=== PATIENT | male | born 1985 | race Caucasian/White ===

== ENCOUNTER 2021-04-13 15:08 | Emergency (ER) | payer OTHER, SELFPAY ==
[2021-04-13 15:14] VITALS: BP 121/76; PULSE 63; RESP 18; TEMP 36.4; O2SAT 99
--- NOTE | 2021-04-13 15:40 | ED.GENADULT ---
HPI - General Adult General Chief complaint: Unspecified Stated complaint: Leg, abdominal cramps/Fatigue Time Seen by Provider: 04/13/21 15:11 Source: patient Mode of arrival: ambulatory Limitations: no limitations History of Present Illness HPI narrative: 35-year-old male presents to [facility] with complaints of intermittent leg cramping and abdominal cramping since yesterday while working. Patient reports that he worked out in the heat all day yesterday and only drank 2 small cups of water. Patient reports that the abdominal cramping has since subsided. Patient reports that he had a small amount of right leg cramping this morning but it also is improving. Patient reports that he only ate a bowl of cereal and drank 1 bottle of Gatorade in route here. Patient denies chest pain, shortness of breath, fever, body aches, chills, nausea or vomiting. Onset (ago): hour(s) (12) Exacerbating factors: none Associated symptoms: denies other symptoms Treatments prior to arrival: none Related Data Home Medications Medication Instructions Recorded Confirmed No Home Medications 04/13/21 04/13/21 Allergies Allergy/AdvReac Type Severity Reaction Status Date / Time No Known Allergies Allergy Verified 04/13/21 15:21 Review of Systems Constitutional: Constitutional: Denies chills, Denies fatigue, Denies fever(s) and Denies weakness ENT: Denies dysphagia, Denies dizziness, Denies nasal congestion and Denies sore throat Cardiovascular: Cardiovascular: Denies chest pain, Denies rapid heart rate, Denies radiating jaw, neck or arm pain and Denies slow heart rate Respiratory: Respiratory: Denies chest congestion, Denies cough, Denies dyspnea and Denies wheezing Gastrointestinal: Gastrointestinal: Denies abdominal pain, Denies constipation, Denies diarrhea, Denies nausea and Denies vomiting Musculoskeletal: Musculoskeletal: Denies back pain, Denies arthralgias, Denies joint swelling and Reports muscle cramps Integumentary/Breasts: Skin/Breast: Denies rash Neurologic: Denies headache(s), Denies focal weakness, Denies numbness and Denies weakness [facility] Social History Social History (Updated 04/13/21 @ 15:43 by Scarlett Armijo APRN) Smoking status: Current every day smoker Gender identity (if verbalized by the patient): Male Comments At time of signature, I agree with nursing past medical, surgical, social and family history. There is no relevant family history pertinent to the presenting complaint. Exam Const: General: healthy appearing, no acute distress and alert Orientation/consciousness: patient oriented x3 HENMT: Mouth: Yes Normal oral and palatal mucosa present and Yes moist mucous membranes Throat: uvula midline Resp: Effort & Inspection: normal respiratory effort, not labored and not tachypneic Auscultation: clear to auscultation bilaterally Cardio: Rate: regular rate, not bradycardic and not tachycardic Rhythm: regular rhythm and regular rhythm GI: Inspection: non-distended GI Palp: Yes Soft to palpation, No Tenderness to palpation present (GI), No Guarding due to palpation present (GI), No Rigid due to palpation and No Rebound tenderness present Skin: General skin exam: normal color Rashes: no rashes Wounds: no wounds Neuro: General: patient oriented x3, moves all extremities, no meningeal signs and no focal motor deficits Speech: normal speech Gait exam (Neuro): Normal gait present Extrem: General: normal to inspection, no clubbing, cyanosis or edema and no pedal edema Psych: Appearance: grossly normal Mental Status: mental status grossly normal Affect: normal affect Attitude: cooperative Thought content: Yes Normal thought content present Course Vital Signs Vital signs: Vital Signs Temperature 36.4 C L 04/13/21 15:14 Pulse Rate 63 04/13/21 15:14 Respiratory Rate 18 04/13/21 15:14 Blood Pressure 121/76 04/13/21 15:14 Pulse Oximetry 99 04/13/21 15:14 Temperature 36.4 C L 0
== END 2021-04-13 15:50 | disposition home or self-care (01) ==
PROVIDERS: Emergency Provider Nurse Practitioner Family
DX: R25.2 Cramp and spasm (principal)
CPT/HCPCS: 81003; 99212; G0463

== ENCOUNTER 2021-05-18 15:01 | Emergency (ER) | payer OTHER, SELFPAY ==
--- NOTE | ~2021-05-18 | XR_ITS ---
XR knee LT min 4V DATE: 05/18/2021 15:26 INDICATION: Twisted knee yesterday. Lateral pain. TECHNIQUE: 4 views COMPARISON: None FINDINGS: No fracture or dislocation, periosteal reaction or bone destruction or significant joint ef fusion. IMPRESSION: Negative Reviewed, dictated and finalized at location A. IMPRESSION: Negative
[2021-05-18 15:12] VITALS: BP 126/74; PULSE 76; RESP 18; TEMP 37; O2SAT 100
[2021-05-18 15:21] VITALS: BP 126/74; PULSE 76; RESP 18; TEMP 37; O2SAT 100
--- NOTE | 2021-05-18 15:44 | ED.LOWEXIN ---
HPI - Extremity Injury (Lower) General Chief Complaint: Extremity Injury, Lower Stated Complaint: Possible injury to left Knee Time Seen by Provider: 05/18/21 15:30 Source: patient and RN notes reviewed Mode of arrival: ambulatory Limitations: no limitations History of Present Illness HPI Narrative: Patient presents today complaining of a left knee injury. States he was struck in the medial left knee by a log that was rolling yesterday. Reports he feels some grinding in the knee with movement. He also feels some intermittent sharp pain with movement and weightbearing. Currently rates his pain 11/08. He applied ice last night and has tried no medication for symptoms prior to arrival. Denies numbness or tingling in the leg or foot. MD complaint: knee injury Related Data Home Medications Medication Instructions Recorded Confirmed No Home Medications 04/13/21 05/18/21 Allergies Allergy/AdvReac Type Severity Reaction Status Date / Time No Known Allergies Allergy Verified 05/18/21 15:11 Review of Systems Review of Systems: Narrative: CONSTITUTIONAL: Denies body aches, fever, chills, or sweats. EYES: Denies visual changes, redness, or discharge. ENT: Denies rhinorrhea, congestion, sore throat, or otalgia. CARDIOVASCULAR: Denies chest pain, palpitations, or edema. RESPIRATORY: Denies cough or dyspnea. GASTROINTESTINAL: Denies abdominal pain, nausea, vomiting, or diarrhea. GENITOURINARY: Denies dysuria or hematuria. SKIN: Denies rash, itching, or wounds. MUSCULOSKELETAL: Denies back pain, or myalgia.+ Left knee pain NEUROLOGIC: Denies headache, numbness, tingling, or weakness. PSYCH: Denies depression or anxiety. PMFSH Social History Social History (Updated 04/13/21 @ 15:43 by Scarlett Armijo, PATRICIA) Smoking status: Current every day smoker Gender identity (if verbalized by the patient): Male Comments At time of signature, I have reviewed and agree with nursing past medical, surgical, social and family history unless otherwise noted. Please see nursing chart for further information. There is no relevant family history pertinent to the presenting complaint Exam Narrative: Exam Narrative: GENERAL: Well-appearing, well-nourished, and in no acute distress. HEAD: Normocephalic, atraumatic. EYES: EOMI. No redness or drainage. Conjunctivae normal. ENT: Mucous membranes pink and moist. NECK: Normal AROM. CHEST: No respiratory distress. EXTREMITIES: Left knee: Mild tenderness to the lateral joint line. No bony tenderness to the patella. No abnormal movement of the patella. No tenderness to the patellar tendon. No tenderness to the medial joint line. No joint effusion or edema noted. No ecchymosis or erythema noted. Distal sensation intact. Capillary refill normal. Pedal pulse normal. Full AROM of the knee without increased pain. No crepitus noted. SKIN: Warm, dry, no rash. Capillary refill normal. Normal skin turgor. NEURO: No focal deficits. Alert and oriented x3. Gait steady. PSYCH: Normal affect. No signs of depression or anxiety. Course Vital Signs Vital signs: Vital Signs Temperature 98.6 F 05/18/21 15:12 Pulse Rate 76 05/18/21 15:12 Respiratory Rate 18 05/18/21 15:12 Blood Pressure 126/74 05/18/21 15:12 Pulse Oximetry 100 05/18/21 15:12 Temperature 98.6 F 05/18/21 15:21 Pulse Rate 76 05/18/21 15:21 Respiratory Rate 18 05/18/21 15:21 Blood Pressure 126/74 05/18/21 15:21 Pulse Oximetry 100 05/18/21 15:21 Reviewed. Pt has been instructed to follow up with his PCP regarding his elevated blood pressure today. MDM - Extremity Injury (Lower) Differential Diagnosis Differential diagnosis: Likely other (Knee strain, ligament injury, meniscus injury, fracture, contusion) Imaging Data Radiologist's impression: ITS Impressions Knee X-Ray 05/18/21 15:28 IMPRESSION: Negative Critical Care Time Critical Care Time Critical Care Time: No
== END 2021-05-18 16:10 | disposition home or self-care (01) ==
PROVIDERS: Emergency Provider Nurse Practitioner
DX: S89.92XA Unspecified injury of left lower leg, initial encounter (principal); W20.8XXA Other cause of strike by thrown, projected or falling object, initial encounter; F17.200 Nicotine dependence, unspecified, uncomplicated
CPT/HCPCS: 73564; 99213; G0463

== ENCOUNTER 2021-08-06 15:47 | Emergency (ER) | payer OTHER, SELFPAY ==
[2021-08-06 15:54] VITALS: BP 126/92; PULSE 68; RESP 18; TEMP 36.7; O2SAT 100
--- NOTE | 2021-08-06 15:58 | ED.ABDPAIN ---
HPI - Abdominal Pain General Chief Complaint: Neck Pain/Injury Stated Complaint: Shoulder/ Neck Pain/ Stomach Pain Time Seen by Provider: 08/06/21 15:58 Source: patient and RN notes reviewed History of Present Illness HPI narrative: Patient is a 36-year-old male who presents the urgent care with complaints of neck pain, shoulder pain and upset stomach. Patient states his main concern is his neck and shoulder pain . 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 Patient states he woke up approximately 3 days ago. Patient states that his stomach just feels empty and denies of any pain, nausea, vomiting, fever, diarrhea. Patient has not taken anything [id number] for his symptoms. Denies of any known trauma or injury to the neck or shoulder. No other acute complaints. No acute distress noted. Patient aware of the plan of care. Some parts of this dictation were generated by voice recognition software and may contain typographical and/or grammatical inaccuracies. Related Data Home Medications Medication Instructions Recorded Confirmed No Home Medications 04/13/21 05/18/21 Allergies Allergy/AdvReac Type Severity Reaction Status Date / Time No Known Allergies Allergy Verified 05/18/21 15:11 Review of Systems Review of Systems: CONSTITUTIONAL: Denies fever, chills, or sweats. EYES: Denies visual changes, redness, or discharge. ENT: Denies rhinorrhea, congestion, sore throat, or otalgia. CARDIOVASCULAR: Denies chest pain, palpitations, or edema. RESPIRATORY: Denies cough or dyspnea. GASTROINTESTINAL: Denies abdominal pain, nausea, vomiting, or diarrhea. Reports of upset stomach GENITOURINARY: Denies dysuria or hematuria. SKIN: Denies rash or itching. MUSCULOSKELETAL: Reports of left shoulder pain and left neck pain NEUROLOGIC: Denies headache, numbness, or weakness. All other systems reviewed are negative, except as documented in HPI. [facility] Social History Social History (Updated 04/13/21 @ 15:43 by Scarlett Armijo APRN) Smoking status: Current every day smoker Gender identity (if verbalized by the patient): Male Comments At the time of my signature, I reviewed and agree with the nursing past medical, surgical, social, and family history. There is no relevant family history pertinent to the patient complaint. Exam Narrative: GENERAL: This is a well-nourished, well-developed patient, in no apparent distress. HEAD: normocephalic, atraumatic. EYES: PERRL. Sclera clear/white. Vision is grossly intact. EARS: External ears normal, auditory canals clear and without drainage, TMs normal without perforation. Hearing grossly intact. NOSE: External nose normal with no obvious nasal discharge, nares without redness, no rhinorrhea. THROAT: Mucous membranes moist, posterior pharynx clear. NECK: Neck supple; very mild mid cervical tenderness radiating to the left scapular region CARDIOVASCULAR: Regular rate and rhythm without murmurs, gallops, or rubs. RESPIRATORY: Clear to auscultation. Breath sounds equal bilaterally. No wheezes, rales, or rhonchi. GASTROINTESTINAL: Abdomen soft, non-tender, nondistended. Bowel sounds are active. SKIN: warm, intact with no suspicious lesions or rash, good texture and turgor. NEURO: awake, alert, and oriented to person, place and time. There were no obvious focal neurologic abnormalities. EXTREMITIES: Range of motion to left upper extremity within normal limits without any exacerbation of pain. Positive strong right radial pulse with capillary refill less than 2 seconds. Course Vital Signs Vital signs: Vital Signs Temperature 98.1 F 08/06/21 15:54 Pulse Rate 68 08/06/21 15:54 Respiratory Rate 18 08/06/21 15:54 Blood Pressure 126/92 H 08/06/21 15:54 Pulse Oximetry 100 08/06/21 15:54 Temperature 98.1 F 08/06/21 15:54 Pulse Rate 68 08/06/21 15:54 Respiratory Rate 18 08/06/21 15:54 Blood Pressure
== END 2021-08-06 16:16 | disposition home or self-care (01) ==
PROVIDERS: Emergency Provider Nurse Practitioner Family
DX: M54.12 Radiculopathy, cervical region (principal); F17.210 Nicotine dependence, cigarettes, uncomplicated
CPT/HCPCS: 99213; G0463

== ENCOUNTER 2021-10-06 12:18 | Emergency (ER) | payer OTHER, SELFPAY ==
--- NOTE | ~2021-10-06 | XR_ITS ---
EXAMINATION: XR finger 3rd RT min 2V INDICATION: Right third finger pain TECHNIQUE: Four views of the right third finger are obtained. COMPARISON: None available FINDINGS: There is soft tissue swelling of the third finger. No fracture, dislocation, or subluxation is identified. The joint spaces are normal. IMPRESSION: 1. Soft tissue swelling of the third finger without acute osseous abnormality identified. Reviewed, dictated and finalized at location A. COPYIST IMPRESSION: 1. Soft tissue swelling of the third finger without acute osseous abnormality i dentified.
--- NOTE | 2021-10-06 12:23 | ED.UPPEXIN ---
HPI - Extremity Injury (Upper) General Chief Complaint: Extremity Injury, Upper Stated Complaint: Finger Injury/Right Hand Time Seen by Provider: 10/06/21 12:23 Source: patient and RN notes reviewed History of Present Illness HPI narrative: Patient is a 36-year-old male who presents the urgent care with complaints of a right hand middle finger injury after he got hit with a log while chopping wood yesterday. Patient took Aleve [id number] for pain. Denies of any other injuries. No other acute complaints. No acute distress noted. Patient aware of the plan of care. Some parts of this dictation were generated by voice recognition software and may contain typographical and/or grammatical inaccuracies. Related Data Home Medications Medication Instructions Recorded Confirmed No Home Medications 04/13/21 05/18/21 Allergies Allergy/AdvReac Type Severity Reaction Status Date / Time No Known Allergies Allergy Verified 10/06/21 12:39 Review of Systems Review of Systems: CONSTITUTIONAL: Denies fever, chills, or sweats. EYES: Denies visual changes, redness, or discharge. ENT: Denies rhinorrhea, congestion, sore throat, or otalgia. CARDIOVASCULAR: Denies chest pain, palpitations, or edema. RESPIRATORY: Denies cough or dyspnea. GASTROINTESTINAL: Denies abdominal pain, nausea, vomiting, or diarrhea. GENITOURINARY: Denies dysuria or hematuria. SKIN: Denies rash or itching. MUSCULOSKELETAL: Reports of right hand middle finger injury NEUROLOGIC: Denies headache, numbness, or weakness. All other systems reviewed are negative, except as documented in HPI. PMFSH Social History Social History (Updated 04/13/21 @ 15:43 by Scarlett Armijo APRN) Smoking status: Current every day smoker Gender identity (if verbalized by the patient): Male Comments At the time of my signature, I reviewed and agree with the nursing past medical, surgical, social, and family history. There is no relevant family history pertinent to the patient complaint. Exam Narrative: GENERAL: This is a well-nourished, well-developed patient, in no apparent distress. HEAD: normocephalic, atraumatic. EYES: PERRL. Sclera clear/white. Vision is grossly intact. EARS: External ears normal NOSE: External nose normal with no obvious nasal discharge, nares without redness, no rhinorrhea. THROAT: Mucous membranes moist NECK: Neck supple CARDIOVASCULAR: Regular rate and rhythm without murmurs, gallops, or rubs. RESPIRATORY: Clear to auscultation. Breath sounds equal bilaterally. No wheezes, rales, or rhonchi. SKIN: warm, intact with no suspicious lesions or rash, good texture and turgor. NEURO: awake, alert, and oriented to person, place and time. There were no obvious focal neurologic abnormalities. EXTREMITIES: Mild to moderate edema noted to the PIP to the MCP of the right middle digit. Positive strong right radial pulse with capillary refill less than 2 seconds. Range of motion of affected finger not tested due to pain. Very mild surrounding erythema Course Vital Signs Vital signs: Vital Signs Temperature 97.9 F 10/06/21 12:28 Pulse Rate 83 10/06/21 12:28 Respiratory Rate 16 10/06/21 12:28 Blood Pressure 128/80 10/06/21 12:28 Pulse Oximetry 100 10/06/21 12:28 Temperature 97.9 F 10/06/21 12:28 Pulse Rate 83 10/06/21 12:28 Respiratory Rate 16 10/06/21 12:28 Blood Pressure 128/80 10/06/21 12:28 Pulse Oximetry 100 10/06/21 12:28 Reviewed MDM - Extremity Injury (Upper) MDM Narrative Medical decision making narrative: Reviewed x-ray results with patient. He is aware that there is no notable deformity, dislocation or fracture noted to the affected finger. Advised the patient to use ice/Tylenol/ibuprofen as needed for pain or discomfort. Wear the metal foam splint as directed. Typically the swelling and pain will last approximately 3 to 5 days from the injury. Resume normal activity as tolerated. Follow-up with your PCP
[2021-10-06 12:28] VITALS: BP 128/80; PULSE 83; RESP 16; TEMP 36.6; O2SAT 100
== END 2021-10-06 12:40 | disposition home or self-care (01) ==
PROVIDERS: Emergency Provider Nurse Practitioner Family
DX: S60.031A Contusion of right middle finger without damage to nail, initial encounter (principal); W22.8XXA Striking against or struck by other objects, initial encounter; F17.200 Nicotine dependence, unspecified, uncomplicated
CPT/HCPCS: 29130; 73140; 99213; G0463

== ENCOUNTER 2022-01-27 17:00 | Emergency (ER) | payer OTHER, SELFPAY ==
--- NOTE | ~2022-01-27 | XR_ITS ---
EXAMINATION: XR knee RT min 4V DATE: 01/27/2022 18:00 INDICATION: Right knee pain. TECHNIQUE: 5 views of right knee were obtained. COMPARISON: None. FINDINGS: Bone alignment is normal. No fracture. There is mild osteoarthritis of lateral and patellof emoral compartments characterized by tiny osteophytes. No joint space narrowing. No knee joint effusi on. IMPRESSION: 1. Mild right knee osteoarthritis. Reviewed, dictated and finalized at location A.
[2022-01-27 17:20] VITALS: BP 140/81; PULSE 69; RESP 18; TEMP 37.1; O2SAT 98
--- NOTE | 2022-01-27 17:24 | ED.LOWEXIN ---
HPI - Extremity Injury (Lower) General Chief Complaint: Extremity Problem,Nontraumatic Stated Complaint: Right Knee Pain Time Seen by Provider: 01/27/22 17:24 Source: patient Mode of arrival: ambulatory Limitations: no limitations History of Present Illness HPI Narrative: 36-year-old male presented for complaint of right knee pain for 2 weeks. Denies injury. 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 He states it feels like a rock is between the skin and the patella only when he kneels down and applies pressure on the knee. He has no pain at any other time. He states he has been taking off his gloves and using them as a cushion when he kneels down, but today that did not help the pain. He does not take anything for pain. Denies numbness, tingling, weakness to the RLE. Related Data Home Medications Medication Instructions Recorded Confirmed No Home Medications 04/13/21 01/27/22 Allergies Allergy/AdvReac Type Severity Reaction Status Date / Time No Known Allergies Allergy Verified 01/27/22 17:19 Review of Systems Review of Systems: CONSTITUTIONAL: Denies body aches, fever, chills EYES: Denies visual changes ENT: Denies rhinorrhea, congestion CARDIOVASCULAR: Denies chest pain, palpitations, or edema. RESPIRATORY: Denies cough or dyspnea. GASTROINTESTINAL: Denies abdominal pain, nausea, vomiting, or diarrhea. SKIN: Denies rash, itching, or wounds. MUSCULOSKELETAL: Reports right knee pain NEUROLOGIC: Denies headache, numbness, tingling, or weakness. PSYCH: Denies depression or anxiety. All systems reviewed & are unremarkable except as noted in HPI and below PMFSH Social History Social History Smoking status: Current every day smoker Gender identity (if verbalized by the patient): Male Comments At time of signature, I have reviewed and agree with nursing past medical, surgical, social and family history unless otherwise noted. Please see nursing chart for further information. There is no relevant family history pertinent to the presenting complaint Exam Narrative: GENERAL: Well-appearing, well-nourished, and in no acute distress. HEAD: Normocephalic, atraumatic. EYES: PERRLA, conjunctivae clear NECK: Supple. CHEST: Speaks in full sentences. No respiratory distress. HEART: Regular rate and rhythm. Normal and equal peripheral pulses. EXTREMITIES: Right anterior knee pain with palpation at distal patella with knee extension, no swelling, bruising or redness, no open areas. Full active range of motion with flexion/extension/rotation. No skin tenting or obvious deformity; pulse palpable and equal bilaterally, skin warm, dry, pink. ambulatory with steady gait. SKIN: Warm, dry, no rash. NEURO: Alert and oriented x3. PSYCH: Normal mood and affect Course Course Emergency Course: Patient is aware of diagnosis, understands and agrees to treatment plan. Anticipatory guidance given. Patient agrees to follow-up as directed and is aware of reasons to seek care at the emergency department. Portions of this record may have been created with voice recognition software Level of Care: Express Care Visit Vital Signs Vital signs: Vital Signs Temperature 98.8 F 01/27/22 17:20 Pulse Rate 69 01/27/22 17:20 Respiratory Rate 18 01/27/22 17:20 Blood Pressure 140/81 01/27/22 17:20 Pulse Oximetry 98 01/27/22 17:20 Temperature 98.8 F 01/27/22 17:20 Pulse Rate 69 01/27/22 17:20 Respiratory Rate 18 01/27/22 17:20 Blood Pressure 140/81 01/27/22 17:20 Pulse Oximetry 98 01/27/22 17:20 Reviewed MDM - Extremity Injury (Lower) MDM Narrative Medical decision making narrative: Result of x-ray reviewed with patient. He is advised to use a soft knee pad and follow-up with PCP/Ortho as needed. He is appropriate for outpatient treatment. Differential Diagnosis Differential diagnosis: Likely other (knee tendon/ligament injury, patellar fracture)
== END 2022-01-27 18:24 | disposition home or self-care (01) ==
PROVIDERS: Emergency Provider Nurse Practitioner Family
DX: M25.561 Pain in right knee (principal); F17.200 Nicotine dependence, unspecified, uncomplicated
CPT/HCPCS: 73564; 99213; G0463

== ENCOUNTER 2022-09-08 16:28 | Emergency (ER) | payer OTHER, SELFPAY ==
[2022-09-08 16:32] VITALS: BP 122/74; PULSE 74; RESP 14; TEMP 36.4; O2SAT 99
--- NOTE | 2022-09-08 16:39 | ED.URI ---
HPI - URI/Sore Throat General Chief Complaint: Upper Respiratory Infection Stated Complaint: hot; sweaty; nausea Time Seen by Provider: 09/08/22 16:39 Source: patient and RN notes reviewed History of Present Illness HPI Narrative: Patient is a 37-year-old male who presents to the Urgent Care with complaints of headache confusion, nausea sore throat and congestion. Patient states he has been taking Benadryl and using cough medication to soothe the throat. Denies any known exposures. Denies any abdominal pain or vomiting. No other acute complaints. No acute distress noted. Patient aware of the plan of care. Some parts of this dictation were generated by voice recognition software and may contain typographical and/or grammatical inaccuracies. Related Data Home Medications Medication Instructions Recorded Confirmed No Home Medications 04/13/21 01/27/22 Allergies Allergy/AdvReac Type Severity Reaction Status Date / Time No Known Allergies Allergy Verified 09/08/22 16:43 Review of Systems Review of Systems: CONSTITUTIONAL: reports of fever chills EYES: Denies visual changes, redness, or discharge. ENT: Reports a sore throat, nasal congestion CARDIOVASCULAR: Denies chest pain, palpitations, or edema. RESPIRATORY: Denies cough or dyspnea. GASTROINTESTINAL: reports of intermittent nausea without vomiting, diarrhea or abdominal pain GENITOURINARY: Denies dysuria or hematuria. SKIN: Denies rash or itching. MUSCULOSKELETAL: Denies back pain, joint pain. reports of body aches NEUROLOGIC: Denies headache, numbness, or weakness. All other systems reviewed are negative, except as documented in HPI. PMFSH Social History Social History Smoking status: Current every day smoker Gender identity (if verbalized by the patient): Male Comments At the time of my signature, I reviewed and agree with the nursing past medical, surgical, social, and family history. There is no relevant family history pertinent to the patient complaint. Exam Narrative: GENERAL: This is a well-nourished, well-developed patient. appears fatigued HEAD: normocephalic, atraumatic. EYES: PERRL. Sclera clear/white. Vision is grossly intact. EARS: External ears normal, auditory canals clear and without drainage, TMs normal without perforation. Hearing grossly intact. NOSE: External nose normal with no obvious nasal discharge, nares without redness, no rhinorrhea. THROAT: Mucous membranes moist, posterior pharynx clear. moderate postnasal drainage NECK: Neck supple, non-tender without lymphadenopathy CARDIOVASCULAR: Regular rate and rhythm without murmurs, gallops, or rubs. RESPIRATORY: Clear to auscultation. Breath sounds equal bilaterally. No wheezes, rales, or rhonchi. GASTROINTESTINAL: Abdomen soft, non-tender, nondistended. SKIN: warm, intact with no suspicious lesions or rash, good texture and turgor. NEURO: awake, alert, and oriented to person, place and time. There were no obvious focal neurologic abnormalities. EXTREMITIES: No clubbing, cyanosis, or edema. Course Course Level of Care: Express Care Visit Vital Signs Vital signs: Vital Signs Temperature 97.5 F L 09/08/22 16:32 Pulse Rate 74 09/08/22 16:32 Respiratory Rate 14 09/08/22 16:32 Blood Pressure 122/74 09/08/22 16:32 Pulse Oximetry 99 09/08/22 16:32 Oxygen Delivery Room Air 09/08/22 16:32 Temperature 97.5 F L 09/08/22 16:32 Pulse Rate 74 09/08/22 16:32 Respiratory Rate 14 09/08/22 16:32 Blood Pressure 122/74 09/08/22 16:32 Pulse Oximetry 99 09/08/22 16:32 Oxygen Delivery Room Air 09/08/22 16:32 reviewed MDM - URI/Sore Throat MDM Narrative Medical decision making narrative: reviewed lab results with the patient. He is aware that he is negative for influenza. Strep swab Was also negative. Educated patient on culture and we will call within 72 hours if culture is po
== END 2022-09-08 17:11 | disposition home or self-care (01) ==
PROVIDERS: Emergency Provider Nurse Practitioner Family; PCP Physician Assistant
DX: B34.9 Viral infection, unspecified (principal); F17.200 Nicotine dependence, unspecified, uncomplicated
CPT/HCPCS: 87081; 87804; 87880; 99213; G0463

== ENCOUNTER 2022-10-08 08:44 | Emergency (ER) | payer OTHER, SELFPAY ==
[2022-10-08 08:50] VITALS: BP 113/68; PULSE 61; RESP 14; TEMP 36.8; O2SAT 99
--- NOTE | 2022-10-08 09:42 | ED.URI ---
HPI - URI/Sore Throat General Chief Complaint: Upper Respiratory Infection Stated Complaint: Sore Throat/Nausea Time Seen by Provider: 10/08/22 09:42 Source: patient, RN notes reviewed and old records reviewed Mode of arrival: ambulatory Limitations: no limitations History of Present Illness HPI Narrative: 37-year-old male presents to [facility] with complaints of illness which started p.m. Patient reports his stomach has been upset he has been nauseated, has not had vomiting or diarrhea and reports headache.. Patient states he has had sore throat for 2 days he lacks energy, no known fevers,positive for chills or sweats, he has been taking Motrin for his symptoms. He reports that his daughter has also been ill with similar symptoms. No Covid vaccinations or any flu shot. MD elicited complaint: sore throat Pain scale (0-10): 3 Treatments prior to arrival: ibuprofen Related Data Allergies Allergy/AdvReac Type Severity Reaction Status Date / Time No Known Allergies Allergy Verified 09/08/22 16:43 Review of Systems Review of Systems: CONSTITUTIONAL: Denies known fever, positive for chills, or sweats. EYES: Denies visual changes, redness, or discharge. ENT: Reports rhinorrhea, congestion, sore throat, no otalgia. CARDIOVASCULAR: Denies chest pain, palpitations, or edema. RESPIRATORY: positive cough no dyspnea. GASTROINTESTINAL: Denies abdominal pain,positive for nausea, no vomiting, or diarrhea. GENITOURINARY: Denies dysuria or hematuria. SKIN: Denies rash or itching. MUSCULOSKELETAL: Denies back pain, joint pain, or myalgia. NEUROLOGIC: Positive for headache,no numbness, or weakness. PSYCHIATRIC: Denies anxiety or depression. All systems reviewed & are unremarkable except as noted in HPI and below PMFSH Past Medical History Medical History (Updated 10/12/22 @ 12:47 by Demetra Bucnh NP) Back pain Surgical History Surgical History (Updated 10/08/22 @ 10:13 by Demetra Bunch NP) H/O hand surgery metal removed from left index finger Social History Social History (Updated 10/08/22 @ 10:11 by Demetra Bunch NP) Smoking packs per day: 0.5 Smoking cigarettes per day: 10.0 Years smoked: 10 Smoking pack-years: 5.00 Smoking status: Current every day smoker Alcohol intake: current Alcohol use details: social Substance use type: marijuana Living arrangements: with family Gender identity (if verbalized by the patient): Male Comments At time of signature, agree with nursing past medical, surgical, social and family history. There is no relevant family history pertinent to the presenting complaint Exam Narrative: GENERAL: Well-appearing, well-nourished, and in no acute distress. HEAD: Normocephalic, atraumatic. EYES: PERRLA and EOMI. ENT: Nares red with clear rhinorrhea no epistaxis. Mucous membranes moist.TM's normal with good light reflex, throat red with tonsil swelling and painful swallowing NECK: Supple.lymphadenopathy CHEST: Clear to auscultation. No respiratory distress.SAO2 99% on room air HEART: Regular rate and rhythm. No murmur heard. Normal peripheral pulses. ABDOMEN: Soft, nontender, nondistended, normal active bowel sounds. EXTREMITIES: Normal range of motion. No edema. SKIN: Warm, dry, no rash. NEURO: No focal deficits. Alert and oriented x3. Course Course Emergency Course: Patient is aware of diagnosis, understands and agrees to treatment plan.? Anticipatory guidance given.? Patient agrees to follow-up as directed and is aware of reasons to seek care at the emergency department. Portions of this record may have been created with voice recognition software Level of Care: Express Care Visit Vital Signs Vital signs: Vital Signs Temperature 36.8 C 10/08/22 08:50 Pulse Rate 61 10/08/22 08:50 Respiratory Rate 14 10/08/22 08:50 Blood Pressure 113/68 10/08/22 08:50 Pulse Oximetry 99 10/08/22 08:50 Oxygen Delivery Room Air 10/08/22 08:50 Tem
== END 2022-10-08 10:15 | disposition home or self-care (01) ==
PROVIDERS: Emergency Provider Registered Nurse; PCP Physician Assistant
DX: J02.0 Streptococcal pharyngitis (principal); Z20.822 Contact with and (suspected) exposure to COVID-19; F17.210 Nicotine dependence, cigarettes, uncomplicated; F12.90 Cannabis use, unspecified, uncomplicated
CPT/HCPCS: 87426; 87804; 87880; 99213; C9803; G0463

== ENCOUNTER 2022-10-18 12:42 | Emergency (ER) | payer OTHER, SELFPAY ==
[2022-10-18 12:55] VITALS: BP 124/69; PULSE 75; RESP 18; TEMP 36.5; O2SAT 98
--- NOTE | 2022-10-18 13:15 | ED.URI ---
HPI - URI/Sore Throat General Chief Complaint: Nausea/Vomiting/Diarrhea Stated Complaint: Vomiting/Fever/Headache Time Seen by Provider: 10/18/22 13:28 Source: patient and RN notes reviewed Mode of arrival: ambulatory Limitations: no limitations History of Present Illness HPI Narrative: 37-year-old male presents with concern for vomiting, chills body aches fever that started yesterday. Reports a fever of 102. Reports he was recently treated for strep throat, his symptoms improved, he replaced his toothbrush after 24 hours on his antibiotic. He reports his son has similar symptoms, his other children who also had strep throat recently. MD elicited complaint: cough and sore throat Related Data Allergies Allergy/AdvReac Type Severity Reaction Status Date / Time No Known Allergies Allergy Verified 10/18/22 13:00 Review of Systems Review of Systems: CONSTITUTIONAL: Reports malaise, chills, sweats, or fever. EYES: Denies visual changes, redness, or discharge. ENT: Reports rhinorrhea, congestion, and sore throat. CARDIOVASCULAR: Denies chest pain, palpitations, or edema. RESPIRATORY: Reports cough. Denies dyspnea. GASTROINTESTINAL: Denies abdominal pain, diarrhea. Reports vomiting and nausea SKIN: Denies rash or itching. MUSCULOSKELETAL: Reports myalgia. NEUROLOGIC: Denies headache. All systems reviewed & are unremarkable except as noted in HPI and below PMFSH Past Medical History Medical History (Updated 10/18/22 @ 13:34 by Cherelle Buchanan NP) Back pain Surgical History Surgical History (Updated 10/08/22 @ 10:13 by Demetra Bunch NP) H/O hand surgery metal removed from left index finger Social History Social History (Updated 10/08/22 @ 10:11 by Demetra Bunch NP) Smoking packs per day: 0.5 Smoking cigarettes per day: 10.0 Years smoked: 10 Smoking pack-years: 5.00 Smoking status: Current every day smoker Alcohol intake: current Alcohol use details: social Substance use type: marijuana Gender identity (if verbalized by the patient): Male Comments At time of signature, agree with nursing past medical, surgical, social and family history. There is no relevant family history pertinent to the presenting complaint Exam Narrative: GENERAL: Nontoxic-appearing and in no acute distress. HEAD: Normocephalic EYES: PERRLA, conjunctivae clear ENT: Nares clear, turbinates edematous and erythematous, clear discharge. Mucous membranes moist. TM pearly mcallister with dull light reflex bilaterally; no tragal tenderness. Oropharynx not erythematous without lesions. Tonsils not enlarged and without exudate, no drooling, no hoarseness, no trismus, uvula midline. NECK: Supple. No lymphadenopathy CHEST: Clear to auscultation, breath sounds equal. No wheezing, rhonchi, rales, or stridor. No respiratory distress, speaks in full sentences. HEART: Regular rate and rhythm. No murmur heard. SKIN: Warm, dry, no rash. NEURO: Alert and oriented x3. PSYCH: Normal mood and affect Course Course Emergency Course: Patient is aware of diagnosis, understands and agrees to treatment plan. Anticipatory guidance given. Patient agrees to follow-up as directed and is aware of reasons to seek care at the emergency department. Portions of this record may have been created with voice recognition software Level of Care: Express Care Visit Vital Signs Vital signs: Vital Signs Temperature 97.7 F 10/18/22 12:55 Pulse Rate 75 10/18/22 12:55 Respiratory Rate 18 10/18/22 12:55 Blood Pressure 124/69 10/18/22 12:55 Pulse Oximetry 98 10/18/22 12:55 Oxygen Delivery Room Air 10/18/22 12:55 Temperature 97.7 F 10/18/22 12:55 Pulse Rate 75 10/18/22 12:55 Respiratory Rate 18 10/18/22 12:55 Blood Pressure 124/69 10/18/22 12:55 Pulse Oximetry 98 10/18/22 12:55 Oxygen Delivery Room Air 10/18/22 12:55 Reviewed. MDM - URI/Sore Throat MDM Narrative Medical decision making narrative: Diffe
== END 2022-10-18 13:50 | disposition home or self-care (01) ==
PROVIDERS: Emergency Provider Nurse Practitioner; PCP Physician Assistant
DX: R11.2 Nausea with vomiting, unspecified (principal); R50.9 Fever, unspecified; R51.9 Headache, unspecified; F17.210 Nicotine dependence, cigarettes, uncomplicated
CPT/HCPCS: 87081; 99213; G0463

== ENCOUNTER 2023-02-15 15:20 | Emergency (ER) | payer OTHER, SELFPAY ==
[2023-02-15 15:24] VITALS: BP 136/76; PULSE 72; RESP 16; TEMP 36.9; O2SAT 98
--- NOTE | 2023-02-15 15:59 | ED.NAVMDI ---
HPI - Nausea/Vomiting/Diarrhea General Chief complaint: Nausea/Vomiting/Diarrhea Stated complaint: Diarrhea/Vomiting Source: patient and RN notes reviewed History of Present Illness HPI Narrative: 37-year-old male presents to urgent care with complaints of vomiting and diarrhea since this morning. Patient states he and his boss went to lunch yesterday they both came down with the same symptoms today. Patient states the different foods at that time. Denies any fevers, chills, abdominal pain, or dizziness. Patient states he is able to keep water down today. Some parts of this dictation were generated by voice recognition software and may contain typographical and/or grammatical inaccuracies. Related Data Allergies Allergy/AdvReac Type Severity Reaction Status Date / Time No Known Allergies Allergy Verified 02/15/23 15:27 [facility] Past Medical History Medical History (Updated 02/15/23 @ 16:00 by Marialuisa Vega APRN) Back pain Surgical History Surgical History (Updated 10/08/22 @ 10:13 by Demetra Bunch NP) H/O hand surgery metal removed from left index finger Social History Social History (Updated 10/08/22 @ 10:11 by Demetra Bunch NP) Smoking packs per day: 0.5 Smoking cigarettes per day: 10.0 Years smoked: 10 Smoking pack-years: 5.00 Smoking status: Current every day smoker Alcohol intake: current Alcohol use details: social Substance use type: marijuana Living arrangements: with family Gender identity (if verbalized by the patient): Male Course Course Level of Care: Express Care Visit Vital Signs Vital signs: Vital Signs Temperature 98.4 F 02/15/23 15:24 Pulse Rate 72 02/15/23 15:24 Respiratory Rate 16 02/15/23 15:24 Blood Pressure 136/76 02/15/23 15:24 Pulse Oximetry 98 02/15/23 15:24 Oxygen Delivery Room Air 02/15/23 15:24 Temperature 98.4 F 02/15/23 15:24 Pulse Rate 72 02/15/23 15:24 Respiratory Rate 16 02/15/23 15:24 Blood Pressure 136/76 02/15/23 15:24 Pulse Oximetry 98 02/15/23 15:24 Oxygen Delivery Room Air 02/15/23 15:24 Reviewed. MDM - Nausea/Vomiting/Diarrhea MDM Narrative Medical decision making narrative: You've been diagnosed with a viral illness that would not require antibiotics at this time. Take the Zofran ODT at home as directed for nausea and get plenty of fluids. You may take Imodium for diarrhea. If you would like to eat food, you should follow the BRAT diet (bananas, rice, applesauce, and toast, or things of the like). If you develop any new or worsening symptoms, you should go to the emergency dept without hesitation. Follow up with your digital campaign specialist in 2-5 days. Differential Diagnosis Differential diagnosis: Likely food poisoning, gastroenteritis and dehydration Critical Care Time Critical Care Time Critical Care Time: No Discharge Plan Discharge Clinical Impression: Gastroenteritis Patient Disposition: Home, Self-Care Condition: Stable Instructions: Acute Nausea and Vomiting (DC) Additional Instructions: You've been diagnosed with a viral illness that would not require antibiotics at this time. Take the Zofran ODT at home as directed for nausea and get plenty of fluids. You may take Imodium for diarrhea. If you would like to eat food, you should follow the BRAT diet (bananas, rice, applesauce, and toast, or things of the like). If you develop any new or worsening symptoms, you should go to the emergency dept without hesitation. Follow up with your digital campaign specialist in 2-5 days. Prescriptions: New ondansetron HCl 4 mg tablet 4 mg PO Q6H PRN (Reason: nausea and vomiting) Qty: 14 0RF Follow-up/Referrals: Radha,KATERINA Hart [Primary Care Provider] - Stand Alone Forms: Work/School Release IP Time of Disposition: 16:01
== END 2023-02-15 16:05 | disposition home or self-care (01) ==
PROVIDERS: Emergency Provider Nurse Practitioner Family; PCP Physician Assistant
DX: K52.9 Noninfective gastroenteritis and colitis, unspecified (principal); F17.210 Nicotine dependence, cigarettes, uncomplicated
CPT/HCPCS: 99213; G0463

== ENCOUNTER 2023-03-24 12:03 | Emergency (ER) | payer OTHER, SELFPAY ==
[2023-03-24 12:08] VITALS: BP 136/83; PULSE 67; RESP 14; TEMP 36.5; O2SAT 99
--- NOTE | 2023-03-24 12:15 | ED.GENADULT ---
HPI - General Adult General Chief complaint: Unspecified Stated complaint: Nausea Time Seen by Provider: 03/24/23 12:43 Source: patient, RN notes reviewed and old records reviewed Mode of arrival: ambulatory Limitations: no limitations History of Present Illness HPI narrative: 37-year-old female presents to the [facility] with complaints of nausea that started at 9:00 a.m. this morning. States he had to leave work. Denies any abdominal pain. States that he ate some [place] food and drink a couple beers last night. Denies any abdominal history. Onset (ago): hour(s) Related Data Allergies Allergy/AdvReac Type Severity Reaction Status Date / Time No Known Allergies Allergy Verified 03/24/23 12:19 Review of Systems Review of Systems: All systems reviewed & are unremarkable except as noted in HPI and below Constitutional: Constitutional: Reports no additional constitutional complaints Eyes: Eyes: Reports no additional eye complaints ENT: Reports system reviewed and no additional complaints, except as documented Cardiovascular: Cardiovascular: Reports no additional cardiovascular complaints, Denies chest pain and Denies dyspnea Respiratory: Respiratory: Reports no additional respiratory complaints, Denies chest congestion, Denies cough and Denies dyspnea Gastrointestinal: Gastrointestinal: Reports as per HPI, Denies abdominal pain, Denies heartburn, Denies diarrhea, Reports nausea and Denies vomiting Musculoskeletal: Musculoskeletal: Reports no additional musculoskeletal complaints Integumentary/Breasts: Skin/Breast: Reports system reviewed and no additional complaints, except as docu Neurologic: Reports system reviewed and no additional complaints, except as documented Psychiatric: Psychiatric: Reports no additional psychiatric complaints Allergic/Immunologic: Allergic/Immunologic: Reports no additional allergic/immunologic complaints [facility] Past Medical History Medical History (Updated 03/24/23 @ 12:51 by Cherelle Aguirre APRN) Back pain Surgical History Surgical History H/O hand surgery metal removed from left index finger Social History Social History Smoking packs per day: 0.5 Smoking cigarettes per day: 10.0 Years smoked: 10 Smoking pack-years: 5.00 Smoking status: Current every day smoker Alcohol intake: current Alcohol use details: social Substance use type: marijuana Living arrangements: with family Gender identity (if verbalized by the patient): Male Comments At the time of my signature, I reviewed and agree with the nursing past medical, surgical, social, and family history. There is no relevant family history pertinent to the patient complaint. Exam Const: General: cooperative, healthy appearing, comfortable, no acute distress, well developed, alert and well nourished Nutritional Appearance: well nourished Orientation/consciousness: patient oriented x3 Limitations: no limitations HENMT: Head: normal to inspection Ears: hearing grossly normal bilaterally and external ears normal Face/Nose/Sinus: Normal external nose present, Normal nares present, Normal nasal mucous membranes and turbinates present and normal facial exam Face and sinus: normal facial exam Mouth: Yes Normal oral and palatal mucosa present, Yes lip normal and Yes moist mucous membranes Throat: posterior oropharynx normal and uvula midline Eyes: General: appearance normal, both eyes and all related structures Alignment and Position: alignment normal Periorbital: periorbital findings normal Pupils: Equal, round and reactive pupils present EOM: EOMs intact bilaterally Neck: Neck: normal visual inspection, full ROM, no lymphadenopathy and no meningeal signs Chest: Chest palpation & inspection: normal inspection of the chest Resp: Effort & Inspection: normal respiratory effort and able to speak in c
== END 2023-03-24 12:59 | disposition home or self-care (01) ==
PROVIDERS: Emergency Provider Nurse Practitioner; PCP Physician Assistant
DX: R11.0 Nausea (principal); F17.210 Nicotine dependence, cigarettes, uncomplicated
CPT/HCPCS: 99213; G0463

== ENCOUNTER 2023-05-08 16:30 | Emergency (ER) | payer OTHER, SELFPAY ==
--- NOTE | ~2023-05-08 | XR_ITS ---
EXAMINATION: XR nasal bones min 3V DATE: 05/08/2023 16:57 INDICATION: Nose injury. History of fracture of the nasal bones. TECHNIQUE: 3 views of the nasal bones were obtained. COMPARISON: None. FINDINGS: There are fracture deformities of the bilateral nasal bones. The nasal septum is at midline . IMPRESSION: 1. Age-indeterminate fractures of the nasal bones. Reviewed, dictated and finalized at location E.
[2023-05-08 16:40] VITALS: BP 127/76; PULSE 80; RESP 16; TEMP 36.2; O2SAT 100
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
== END 2023-05-08 17:08 | disposition home or self-care (01) ==
PROVIDERS: Emergency Provider Nurse Practitioner Family; PCP Physician Assistant
DX: S09.92XA Unspecified injury of nose, initial encounter (principal); W50.0XXA Accidental hit or strike by another person, initial encounter; Z87.81 Personal history of (healed) traumatic fracture; F17.210 Nicotine dependence, cigarettes, uncomplicated; F12.90 Cannabis use, unspecified, uncomplicated
CPT/HCPCS: 70160; 99213; G0463

== ENCOUNTER 2023-05-26 09:47 | Emergency (ER) | payer OTHER, SELFPAY ==
--- NOTE | 2023-05-26 09:53 | ED.GENADULT ---
HPI - General Adult General Chief complaint: Unspecified Stated complaint: heat exsaution, lightheaded, muscle cramps Time Seen by Provider: 05/26/23 10:02 Mode of arrival: ambulatory Limitations: no limitations History of Present Illness HPI narrative: 37-year-old male presents with concern for heat exhaustion. Reports he works in [employer] and when he was working yesterday he began to feel lightheaded, nauseated, was not sweating any longer, and had leg cramps. Reports he was sent home from work. He reports he is feeling better today, he still having mild leg cramps. He denies any current nausea, vomiting, chest pain, shortness of breath, diarrhea. He reports he has been drinking a lot of water and Gatorade. He did not eat dinner last night he ate breakfast this morning. He would like to return to work tomorrow. complaint: Heat exhaustion Related Data Home Medications Medication Instructions Recorded Confirmed mirtazapine 15 mg tablet 15 mg PO DAILY 05/26/23 05/26/23 Allergies Allergy/AdvReac Type Severity Reaction Status Date / Time No Known Allergies Allergy Verified 03/24/23 12:19 Review of Systems Review of Systems: CONSTITUTIONAL: Denies malaise, chills, sweats, or fever. EYES: Denies visual changes CARDIOVASCULAR: Denies chest pain, palpitations, or edema. RESPIRATORY: Denies dyspnea. GASTROINTESTINAL: Reports nausea. Denies vomiting, Diarrhea GENITOURINARY: Denies dysuria or hematuria. MUSCULOSKELETAL: Reports leg cramps NEUROLOGIC: Denies numbness, weakness, or headache. All systems reviewed & are unremarkable except as noted in HPI and below [facility] Past Medical History Medical History (Updated 05/26/23 @ 10:10 by Cherelle Buchanan NP) Back pain Surgical History Surgical History H/O hand surgery metal removed from left index finger Social History Social History Smoking packs per day: 0.5 Smoking cigarettes per day: 10.0 Years smoked: 10 Smoking pack-years: 5.00 Smoking status: Current every day smoker Alcohol intake: current Alcohol use details: social Substance use type: marijuana Living arrangements: with family Gender identity (if verbalized by the patient): Male Comments At time of signature, agree with nursing past medical, surgical, social and family history. There is no relevant family history pertinent to the presenting complaint Exam Narrative: GENERAL: Well-appearing, well-nourished, and in no acute distress. HEAD: Normocephalic EYES: PERRLA, sclera clear ENT: Nares clear. Mucous membranes moist. NECK: Supple. CHEST: No respiratory distress. Clear to auscultation. No bony deformities, no asymmetry. Speaks in full sentences. HEART: Regular rate and rhythm. No murmur heard. Normal peripheral pulses. ABDOMEN: Soft, nontender, nondistended EXTREMITIES: Grossly normal range of motion. No edema. Grossly normal strength and sensation. SKIN: Warm, dry, no visible rash. NEURO: Alert and oriented x3. PSYCH: Normal mood and affect Course Course Emergency Course: Patient is aware of diagnosis, understands and agrees to treatment plan. Anticipatory guidance given. Patient agrees to follow-up as directed and is aware of reasons to seek care at the emergency department. Portions of this record may have been created with voice recognition software Level of Care: Express Care Visit Vital Signs Vital signs: Reviewed. Medical Decision Making MDM Narrative Medical decision making narrative: Exam findings show no acute concerns or changes; patient is non-toxic appearing and is in no distress. Patient is appropriate for outpatient treatment and follow-up. Critical Care Time Critical Care Time Critical Care Time: No Discharge Plan Discharge Clinical Impression: Heat exhaustion Patient Disposition: Home, Self-Care Cond
[2023-05-26 10:00] VITALS: BP 136/92; PULSE 74; RESP 16; TEMP 36.7; O2SAT 100
== END 2023-05-26 10:13 | disposition home or self-care (01) ==
PROVIDERS: Emergency Provider Nurse Practitioner; PCP Physician Assistant
DX: T67.5XXA Heat exhaustion, unspecified, initial encounter (principal); X30.XXXA Exposure to excessive natural heat, initial encounter; Y99.0 Civilian activity done for income or pay; F17.210 Nicotine dependence, cigarettes, uncomplicated; F12.90 Cannabis use, unspecified, uncomplicated
CPT/HCPCS: 99211; G0463

== ENCOUNTER 2023-07-04 18:33 | Emergency (ER) | payer OTHER, SELFPAY ==
[2023-07-04 18:38] VITALS: BP 139/86; PULSE 80; RESP 20; TEMP 36.5; O2SAT 99
--- NOTE | 2023-07-04 18:57 | ED.URI ---
HPI - URI/Sore Throat General Chief Complaint: Upper Respiratory Infection Stated Complaint: wants covid test Time Seen by Provider: 07/04/23 18:55 Source: patient, RN notes reviewed and old records reviewed Mode of arrival: ambulatory Limitations: no limitations History of Present Illness HPI Narrative: 37 year old male presents to [facility] and states this morning at 9:00 a.m. he did home COVID test which was negative. He has been experiencing body aches and headache, he has had no fevers or sore throat this is first day of symptoms. He states he has nasal congestion patient has not been vaccinated and he has had COVID x2 previously. Patient reports that he was around his sister 4 days ago and she since then has tested positive for COVID. MD elicited complaint: cough, nasal congestion and other (headache and body aches) Pertinent past history: other (no COVID vaccination) Onset (ago): day(s) (this am) Pain scale (0-10): 4 Treatments prior to arrival: none Related Data Home Medications Medication Instructions Recorded Confirmed mirtazapine 15 mg tablet 15 mg PO DAILY 05/26/23 05/26/23 quetiapine 25 mg tablet mg 07/04/23 Allergies Allergy/AdvReac Type Severity Reaction Status Date / Time No Known Allergies Allergy Verified 03/24/23 12:19 Review of Systems Review of Systems: CONSTITUTIONAL: Denies malaise, chills, sweats, or fever. EYES: Denies visual changes, redness, or discharge. ENT: Reports rhinorrhea, congestion, sinus pain, no otalgia and no sore throat. CARDIOVASCULAR: Denies chest pain, palpitations, or edema. RESPIRATORY: Reports cough.? Denies dyspnea. GASTROINTESTINAL: Denies abdominal pain, nausea, vomiting, diarrhea SKIN: Denies rash or itching. MUSCULOSKELETAL:Reports myalgia. NEUROLOGIC:Reports headache. All systems reviewed & are unremarkable except as noted in HPI and below PMFSH Past Medical History Medical History (Updated 07/06/23 @ 11:00 by Demetra Bunch NP) Back pain Surgical History Surgical History H/O hand surgery metal removed from left index finger Social History Social History Smoking packs per day: 0.5 Smoking cigarettes per day: 10.0 Years smoked: 10 Smoking pack-years: 5.00 Smoking status: Current every day smoker Alcohol intake: current Alcohol use details: social Substance use type: marijuana Living arrangements: with family Gender identity (if verbalized by the patient): Male Comments At time of signature, agree with nursing past medical, surgical, social and family history. There is no relevant family history pertinent to the presenting complaint Exam Narrative: GENERAL: Well-appearing, well-nourished, and in no acute distress. HEAD: Normocephalic EYES: PERRLA, conjunctivae clear ENT: Nares clear, turbinates edematous and erythematous, clear discharge. Mucous membranes moist. TM pearly mcallister with dull light reflex bilaterally; no tragal tenderness. Oropharynx erythematous without lesions. Tonsils not enlarged and without exudate, no drooling, no hoarseness, no trismus, uvula midline. NECK: Supple. No lymphadenopathy CHEST: Clear to auscultation, breath sounds equal. No wheezing, rhonchi, rales, or stridor. No respiratory distress, speaks in full sentences.no cough noted SAO2 99% on room air HEART: Regular rate and rhythm. No murmur heard. SKIN: Warm, dry, no rash. NEURO: Alert and oriented x3. PSYCH: Normal mood and affect Course Course Emergency Course: Patient is aware of diagnosis, understands and agrees to treatment plan.? Anticipatory guidance given.? Patient agrees to follow-up as directed and is aware of reasons to seek care at the emergency department. Portions of this record may have been created with voice recognition software Level of Care: Express Care Visit Vital Signs
== END 2023-07-04 19:24 | disposition home or self-care (01) ==
PROVIDERS: Emergency Provider Registered Nurse; PCP Physician Assistant
DX: J06.9 Acute upper respiratory infection, unspecified (principal); Z20.822 Contact with and (suspected) exposure to COVID-19; F17.210 Nicotine dependence, cigarettes, uncomplicated; F12.90 Cannabis use, unspecified, uncomplicated
CPT/HCPCS: 87426; 99213; C9803; G0463

== ENCOUNTER 2023-11-16 11:52 | Emergency (ER) | payer OTHER, SELFPAY ==
[2023-11-16 11:57] VITALS: BP 142/90; PULSE 66; RESP 16; TEMP 36.8; O2SAT 100
--- NOTE | 2023-11-16 12:08 | ED.DENTAL ---
HPI - Dental/Oral General Chief complaint: Dental/Oral Stated complaint: Toothache Time Seen by Provider: 11/16/23 12:05 Mode of arrival: ambulatory Limitations: no limitations History of Present Illness HPI Narrative: 38-year-old male presents concern for left lower dental pain that started yesterday. Reports that to has been ?rotten on ?for a long time. He reports he has a dentist appointment next week. He denies fever or trouble swallowing. MD Complaint: tooth pain Related Data Home Medications Medication Instructions Recorded Confirmed quetiapine 25 mg tablet 25 mg PO DAILY 07/04/23 11/16/23 Allergies Allergy/AdvReac Type Severity Reaction Status Date / Time No Known Allergies Allergy Verified 11/16/23 12:01 Review of Systems Review of Systems: CONSTITUTIONAL: Denies malaise, chills, sweats, or fever. EYES: Denies visual changes ENT: Denies rhinorrhea, congestion, sinus pain, otalgia or sore throat. Reports left lower dental pain CARDIOVASCULAR: Denies chest pain, palpitations RESPIRATORY: Denies cough or dyspnea. SKIN: Denies rash or itching. MUSCULOSKELETAL: Denies myalgia. NEUROLOGIC: Denies numbness, weakness, or headache. All systems reviewed & are unremarkable except as noted in HPI and below PMFSH Past Medical History Medical History (Updated 11/16/23 @ 12:15 by Cherelle Buchanan NP) Back pain Surgical History Surgical History H/O hand surgery metal removed from left index finger Social History Social History Smoking packs per day: 0.5 Smoking cigarettes per day: 10.0 Years smoked: 10 Smoking pack-years: 5.00 Smoking status: Current every day smoker Alcohol intake: current Alcohol use details: social Substance use type: marijuana Living arrangements: with family Gender identity (if verbalized by the patient): Male Comments At time of signature, agree with nursing past medical, surgical, social and family history. There is no relevant family history pertinent to the presenting complaint Exam Narrative: GENERAL: Well-appearing, well-nourished, and in no acute distress. HEAD: Normocephalic, atraumatic. EYES: PERRLA, sclera clear ENT: Nares clear, turbinates pink, no rhinorrhea or epistaxis. Mucous membranes moist. TM pearly mcallister with sharp light reflex bilaterally; no tragal tenderness. Oropharynx without erythema or lesions. Tonsils not enlarged and without exudate. Missing teeth, broken teeth, caries. No facial swelling or jaw swelling NECK: Supple. No lymphadenopathy. CHEST: No respiratory distress. Speaks in full sentences. HEART: Regular rate and rhythm. SKIN: Warm, dry, no visible rash. NEURO: Alert and oriented x3. PSYCH: Normal mood and affect Course Course Emergency Course: Patient is aware of diagnosis, understands and agrees to treatment plan. Anticipatory guidance given. Patient agrees to follow-up as directed and is aware of reasons to seek care at the emergency department. Portions of this record may have been created with voice recognition software Level of Care: Express Care Visit Vital Signs Vital signs: Vital Signs Temperature 98.2 F 11/16/23 11:57 Pulse Rate 66 11/16/23 11:57 Respiratory Rate 16 11/16/23 11:57 Blood Pressure 142/90 H 11/16/23 11:57 Pulse Oximetry 100 11/16/23 11:57 Oxygen Delivery Room Air 11/16/23 11:57 Temperature 98.2 F 11/16/23 11:57 Pulse Rate 66 11/16/23 11:57 Respiratory Rate 16 11/16/23 11:57 Blood Pressure 142/90 H 11/16/23 11:57 Pulse Oximetry 100 11/16/23 11:57 Oxygen Delivery Room Air 11/16/23 11:57 Reviewed. MDM - Dental/Oral MDM Narrative Medical decision making narrative: Patients pain and complaint coupled with physical findings are consistant with dentalgia. There are no focal signs of space occupying lesions that are compromis
== END 2023-11-16 12:20 | disposition home or self-care (01) ==
PROVIDERS: Emergency Provider Nurse Practitioner; PCP Physician Assistant
DX: K08.89 Other specified disorders of teeth and supporting structures (principal); F17.210 Nicotine dependence, cigarettes, uncomplicated; F12.90 Cannabis use, unspecified, uncomplicated
CPT/HCPCS: 99213; G0463

== ENCOUNTER 2023-12-27 16:37 | Emergency (ER) | payer OTHER, SELFPAY ==
[2023-12-27 16:48] VITALS: BP 125/79; PULSE 70; RESP 16; TEMP 36.3; O2SAT 99
--- NOTE | 2023-12-27 17:19 | ED.DENTAL ---
HPI - Dental/Oral General Chief complaint: Dental/Oral Stated complaint: tooth pain History of Present Illness HPI Narrative: Pt is a 38 y/o male, presents to with right upper dental pain, without associated fevers or facial swelling. He was treated for dental pain in the past and received amoxicillin; which seemed to help a couple of months ago but he reports he now has some left over and took two doses without relief. He has a dentist appointment scheduled in two weeks but isn't working, prompting his visit. He is taking APAP and Motrin for pain with mild relief. He denies any additional associated symptoms or modifying factors. Related Data Allergies Allergy/AdvReac Type Severity Reaction Status Date / Time No Known Allergies Allergy Verified 11/16/23 12:01 Review of Systems ENT: Comments: refer to [facility] Past Medical History Medical History (Updated 12/27/23 @ 17:27 by CRISTA Chen) Back pain Surgical History Surgical History H/O hand surgery metal removed from left index finger Social History Social History Smoking packs per day: 0.5 Smoking cigarettes per day: 10.0 Years smoked: 10 Smoking pack-years: 5.00 Smoking status: Current every day smoker Alcohol intake: current Alcohol use details: social Substance use type: marijuana Living arrangements: with family Gender identity (if verbalized by the patient): Male Exam Const: General: healthy appearing, no acute distress and alert Nutritional Appearance: well nourished Orientation/consciousness: patient oriented x3 Limitations: no limitations HENMT: Head: normal to inspection Ears: external ears normal and TM's normal bilaterally Face and sinus: normal facial exam Teeth and gingiva: abnormal tooth and associated gingiva upper right second bicuspid Other: dental percussion TTP at #2 and #3 teeth. decay is present. mild gingival erythema without fluctuant abscess. No trismus No facial swelling noted. Eyes: Conjunctivae: conjunctivae normal Pupils: Equal, round and reactive pupils present EOM: EOMs intact bilaterally Neck: Neck: normal visual inspection and no lymphadenopathy Resp: Effort & Inspection: normal respiratory effort Auscultation: clear to auscultation bilaterally Cardio: Rate: regular rate Rhythm: regular rhythm Skin: General skin exam: normal color Rashes: no rashes Wounds: no wounds Neuro: General: patient oriented x3, moves all extremities, no meningeal signs, no focal motor deficits and CN's II-XI intact bilaterally Cranial nerves: Yes Nystagmus not present Speech: normal speech Gait exam (Neuro): Normal gait present Extrem: General: normal to inspection and no clubbing, cyanosis or edema Course Course Emergency Course: plan to treat with oral abx, Augmentin with high suspicion a dental abscess is developing. Dental FU as planned in two weeks. T#3 for pain-small quantity. Pt is agreeable with plan. Level of Care: Express Care Visit ([id number]) Vital Signs Vital signs: Vital Signs Temperature 36.3 C L 12/27/23 16:48 Pulse Rate 70 12/27/23 16:48 Respiratory Rate 16 12/27/23 16:48 Blood Pressure 125/79 12/27/23 16:48 Pulse Oximetry 99 12/27/23 16:48 Oxygen Delivery Room Air 12/27/23 16:48 Temperature 36.3 C L 12/27/23 16:48 Pulse Rate 70 12/27/23 16:48 Respiratory Rate 16 12/27/23 16:48 Blood Pressure 125/79 12/27/23 16:48 Pulse Oximetry 99 12/27/23 16:48 Oxygen Delivery Room Air 12/27/23 16:48 Discharge Plan Discharge Clinical Impression: Dental caries, Toothache Patient Disposition: Home, Self-Care Condition: Stable Instructions: Antibiotic Form, Dental Abscess (ED) Additional Instructions: COMPLETE ANTIBIOTICS DIRECTED. CONTINUE TYLENOL AND MOTRIN DIRECTED OVER THE COUNTER FOR PAIN, TYLENOL #3
== END 2023-12-27 17:38 | disposition home or self-care (01) ==
PROVIDERS: Emergency Provider Nurse Practitioner Family; PCP Physician Assistant
DX: K02.9 Dental caries, unspecified (principal); F17.210 Nicotine dependence, cigarettes, uncomplicated; F12.90 Cannabis use, unspecified, uncomplicated
CPT/HCPCS: 99213; G0463

== ENCOUNTER 2024-01-16 15:55 | Emergency (ER) | payer OTHER, SELFPAY ==
[2024-01-16 16:00] VITALS: BP 108/70; PULSE 82; RESP 16; TEMP 36.4; O2SAT 99
--- NOTE | 2024-01-16 16:30 | ED.GENADULT ---
HPI - General Adult General Chief complaint: Unspecified Stated complaint: ran into door with nose Time Seen by Provider: 01/16/24 16:30 Source: patient Mode of arrival: ambulatory Limitations: no limitations History of Present Illness HPI narrative: 38 y/o male presented for c/o nose pain after injury about one hour [employer]. States he hit nose on the front door. At the time he had a nose bleed which resolved after frozen peas were applied. States he sustained a broken nose about 8 months ago. Currently denies dizziness, nausea, vomiting or headache. Related Data Home Medications Medication Instructions Recorded Confirmed bupropion HCl 150 mg 24 hr tablet, mg PO 01/16/24 extended release Allergies Allergy/AdvReac Type Severity Reaction Status Date / Time No Known Allergies Allergy Verified 11/16/23 12:01 Review of Systems Review of Systems: CONSTITUTIONAL: Denies body aches, fever, chills, or sweats. EYES: Denies visual changes, redness, or discharge. ENT: Denies rhinorrhea, epistaxis congestion CARDIOVASCULAR: Denies chest pain, palpitations, or edema. RESPIRATORY: Denies cough or dyspnea. SKIN: Denies rash, itching, or wounds. MUSCULOSKELETAL: Denies back pain, joint pain, or myalgia. NEUROLOGIC: Denies headache All systems reviewed & are unremarkable except as noted in HPI and below PMFSH Past Medical History Medical History Back pain Surgical History Surgical History H/O hand surgery metal removed from left index finger Social History Social History Smoking packs per day: 0.5 Smoking cigarettes per day: 10.0 Years smoked: 10 Smoking pack-years: 5.00 Smoking status: Current every day smoker Alcohol intake: current Alcohol use details: social Substance use type: marijuana Living arrangements: with family Gender identity (if verbalized by the patient): Male Comments At time of signature, I have reviewed and agree with nursing past medical, surgical, social and family history unless otherwise noted. Please see nursing chart for further information. There is no relevant family history pertinent to the presenting complaint Exam Narrative: GENERAL: Well-appearing HEAD: Normocephalic, atraumatic. EYES: EOMI. No redness or drainage. Conjunctivae normal. ENT: Mucous membranes pink and moist. No rhinorrhea or epistaxis, no dried blood to nares or posterior pharynx. TMs normal bilaterally. Throat normal. Uvula midline. NECK: Normal AROM. Supple. No lymphadenopathy. CHEST: No respiratory distress. Clear to auscultation. HEART: Regular rate and rhythm. No murmur appreciated. Normal peripheral pulses. SKIN: Warm, dry, no rash. Capillary refill normal. Normal skin turgor. NEURO: No focal deficits. Alert and oriented x3. Gait steady. PSYCH: Normal affect. Course Course Emergency Course: Patient is aware of diagnosis, understands and agrees to treatment plan. Anticipatory guidance given. Patient agrees to follow-up as directed and is aware of reasons to seek care at the emergency department. Portions of this record may have been created with voice recognition software Level of Care: Express Care Visit Vital Signs Vital signs: Vital Signs Temperature 97.6 F 01/16/24 16:00 Pulse Rate 82 01/16/24 16:00 Respiratory Rate 16 01/16/24 16:00 Blood Pressure 108/70 01/16/24 16:00 Pulse Oximetry 99 01/16/24 16:00 Oxygen Delivery Room Air 01/16/24 16:00 Temperature 97.6 F 01/16/24 16:00 Pulse Rate 82 01/16/24 16:00 Respiratory Rate 16 01/16/24 16:00 Blood Pressure 108/70 01/16/24 16:00 Pulse Oximetry 99 01/16/24 16:00 Oxygen Delivery Room Air 01/16/24 16:00 Medical Decision Making MDM Narrative Medical decision making narrative: Discussed physic
== END 2024-01-16 16:43 | disposition home or self-care (01) ==
PROVIDERS: Emergency Provider Nurse Practitioner Family; PCP Physician Assistant
DX: J34.89 Other specified disorders of nose and nasal sinuses (principal); F17.210 Nicotine dependence, cigarettes, uncomplicated; F12.90 Cannabis use, unspecified, uncomplicated
CPT/HCPCS: 99213; G0463

== ENCOUNTER 2024-02-07 14:59 | Emergency (ER) | payer OTHER, SELFPAY ==
[2024-02-07 15:04] VITALS: BP 124/68; PULSE 76; RESP 16; TEMP 36.4; O2SAT 100
--- NOTE | 2024-02-07 15:05 | ED.GENADULT ---
HPI - General Adult General Chief complaint: Unspecified Stated complaint: dehydrated/exhaustion Time Seen by Provider: 02/07/24 15:08 Source: patient, RN notes reviewed and old records reviewed Mode of arrival: ambulatory Limitations: no limitations History of Present Illness HPI narrative: 38-year-old male to Express Care for complaint of feeling like he is on fire . 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 Patient states that he woke up with chills this morning and then while EN route to clinic he became overheated. Patient believes he may be dehydrated. Patient in no acute distress. Patient denies dizziness, nausea, vomiting, changes in urinary or bowel habits. Patient able to tolerate fluids by mouth. patient requesting work note for today. Related Data Home Medications Medication Instructions Recorded Confirmed bupropion HCl 150 mg 24 hr tablet, 150 mg PO DAILY 01/16/24 02/07/24 extended release trazodone 50 mg tablet 50 mg PO HS 02/07/24 02/07/24 Allergies Allergy/AdvReac Type Severity Reaction Status Date / Time No Known Allergies Allergy Verified 11/16/23 12:01 Review of Systems Review of Systems: All systems reviewed & are unremarkable except as noted in HPI and below Constitutional: Constitutional: Reports as per HPI, Reports chills, Reports excessive sweating and Reports fever(s) ( Subjective) Eyes: Eyes: Reports no additional eye complaints ENT: Reports system reviewed and no additional complaints, except as documented Cardiovascular: Cardiovascular: Reports no additional cardiovascular complaints, Denies chest pain and Denies dyspnea Respiratory: Respiratory: Reports no additional respiratory complaints, Denies cough and Denies dyspnea Musculoskeletal: Musculoskeletal: Reports no additional musculoskeletal complaints Neurologic: Reports system reviewed and no additional complaints, except as documented Psychiatric: Psychiatric: Reports no additional psychiatric complaints [facility] Past Medical History Medical History Back pain Surgical History Surgical History H/O hand surgery metal removed from left index finger Social History Social History Smoking packs per day: 0.5 Smoking cigarettes per day: 10.0 Years smoked: 10 Smoking pack-years: 5.00 Smoking status: Current every day smoker Alcohol intake: current Alcohol use details: social Substance use type: marijuana Living arrangements: with family Gender identity (if verbalized by the patient): Male Comments At the time of my signature, I reviewed and agree with the nursing past medical, surgical, social, and family history. There is no relevant family history pertinent to the patient complaint. Exam Const: General: cooperative, healthy appearing, comfortable, no acute distress, alert and well nourished Nutritional Appearance: well nourished Orientation/consciousness: patient oriented x3 Limitations: no limitations HENMT: Head: normal to inspection Ears: external ears normal Face/Nose/Sinus: Normal external nose present, Normal nares present, normal facial exam, No erythema and No edema Face and sinus: normal facial exam, no erythema and no edema Mouth: Yes Normal oral and palatal mucosa present, Yes tongue normal and Yes moist mucous membranes Eyes: General: appearance normal, both eyes and all related structures Neck: Neck: normal visual inspection, full ROM and no meningeal signs Lymphatic: no lymphadenopathy noted and no lymphedema noted Chest: Chest palpation & inspection: normal inspection of the chest Resp: Effort & Inspection: normal respiratory effort and able to speak in complete sentences Auscultation: clear to auscultation bilatera
== END 2024-02-07 15:27 | disposition home or self-care (01) ==
PROVIDERS: Emergency Provider Nurse Practitioner Family; PCP Physician Assistant
DX: T73.3XXA Exhaustion due to excessive exertion, initial encounter (principal); X50.9XXA Other and unspecified overexertion or strenuous movements or postures, initial encounter; Y99.0 Civilian activity done for income or pay; F17.210 Nicotine dependence, cigarettes, uncomplicated; F12.90 Cannabis use, unspecified, uncomplicated
CPT/HCPCS: 99211; G0463

== ENCOUNTER 2024-06-04 18:49 | Emergency (ER) | payer BC, SELFPAY ==
[2024-06-04 18:52] VITALS: BP 124/88; PULSE 83; RESP 18; TEMP 36.7; O2SAT 99
[2024-06-04 19:05] VITALS: BP 124/88; PULSE 83; RESP 18; TEMP 36.7; O2SAT 99
--- NOTE | 2024-06-04 19:36 | ED.DENTAL ---
HPI - Dental/Oral General Chief complaint: Dental/Oral Stated complaint: tooth pain Time Seen by Provider: 06/04/24 19:25 Source: patient, RN notes reviewed and old records reviewed Mode of arrival: ambulatory Limitations: no limitations History of Present Illness HPI Narrative: 38-year-old male who presents to [facility] with complaints of dental pain to the #19 tooth for the past week duration. Patient reports that he was seen in the ER about a week ago and took prescribed oral antibiotics. Patient reports that pain lessened for a little bit then it has intensified again to the tooth. Patient reports aching sharp pain to the tiith wth grisel gum rednes, no facial swelling noted. Patient did take RX of cephalexin that was prescribed on 05/27/2024 MD Complaint: tooth pain Location: Tooth # (19) Onset (ago): week(s) (1) Severity scale (1-10): 10 Exacerbating factors: chewing and cold Treatment prior to arrival: oral analgesic and other Related Data Home Medications Medication Instructions Recorded Confirmed bupropion HCl 150 mg 24 hr tablet, 150 mg PO DAILY 01/16/24 06/04/24 extended release trazodone 50 mg tablet 50 mg PO HS 02/07/24 06/04/24 Allergies Allergy/AdvReac Type Severity Reaction Status Date / Time No Known Allergies Allergy Verified 06/04/24 18:58 Review of Systems Review of Systems: CONSTITUTIONAL: Denies fever, chills, or sweats. ENT: Denies rhinorrhea, congestion, sore throat, or otalgia. Reports dental pain to left lower posterior #19 tooth, noted caries and missing teeth CARDIOVASCULAR: Denies chest pain, palpitations, or edema. RESPIRATORY: Denies cough or dyspnea. SKIN: Denies rash or itching. MUSCULOSKELETAL: Denies myalgia. NEUROLOGIC: Denies headache All systems reviewed & are unremarkable except as noted in HPI and below PMFSH Past Medical History Medical History Anxiety and depression Back pain Surgical History Surgical History H/O hand surgery metal removed from left index finger Social History Social History Smoking packs per day: 0.5 Smoking cigarettes per day: 10.0 Years smoked: 10 Smoking pack-years: 5.00 Smoking status: Current every day smoker Alcohol intake: current Alcohol use details: social Substance use type: marijuana Living arrangements: with family Gender identity (if verbalized by the patient): Male Comments At time of signature, agree with nursing past medical, surgical, social and family history. There is no relevant family history pertinent to the presenting complaint Exam Narrative: GENERAL: Well-appearing, well-nourished, and in no acute distress. HEAD: Normocephalic, atraumatic. EYES: PERRLA and EOMI. ENT: Nares clear, no rhinorrhea or epistaxis. Mucous membranes moist. Missing teeth, broken teeth, caries, pain to #19 tooth with surrounding red gum with noted caries, no trismus or Pato angina NECK: Supple. no lymphadenopathy CHEST: Clear to auscultation. No respiratory distress.SAO2 99% on room air HEART: Regular rate and rhythm. No murmur heard. Normal peripheral pulses. SKIN: Warm, dry, no rash. NEURO: No focal deficits. Alert and oriented x3. Course Course Emergency Course: Patient is aware of diagnosis, understands and agrees to treatment plan. Anticipatory guidance given. Patient agrees to follow-up as directed and is aware of reasons to seek care at the emergency department. Portions of this record may have been created with voice recognition software Level of Care: Express Care Visit Vital Signs Vital signs: Vital Signs Temperature 36.7 C 06/04/24 18:52 Pulse Rate 83 06/04/24 18:52 Respiratory Rate 18 06/04/24 18:52 Blood Pressure 124/88 06/04/24 18:52 Pulse Oximetry 99 06/04/24 18:52 Oxygen Delivery Room Air 06/04/24 18
== END 2024-06-04 20:00 | disposition home or self-care (01) ==
PROVIDERS: Emergency Provider Registered Nurse; PCP Physician Assistant
DX: K02.9 Dental caries, unspecified (principal); F17.210 Nicotine dependence, cigarettes, uncomplicated; F12.90 Cannabis use, unspecified, uncomplicated; F41.9 Anxiety disorder, unspecified; F32.A Depression, unspecified
CPT/HCPCS: 99213; G0463

== ENCOUNTER 2024-11-01 16:53 | Emergency (ER) | payer SELFPAY ==
[2024-11-01 17:01] VITALS: BP 135/79; PULSE 84; RESP 18; TEMP 37.1; O2SAT 99
--- NOTE | 2024-11-01 17:16 | ED_ITS ---
HPI - URI/Sore Throat General Chief Complaint: Upper Respiratory Infection Stated Complaint: stomach/head/congestion Source: patient and RN notes reviewed Mode of arrival: ambulatory Limitations: no limitations History of Present Illness HPI Narrative: 39-year-old male presented for complaint of abdominal pain for the past 4 days. Reports decreased appetite and nausea today. Endorses vomiting 4 days ago, none since. He continues to feel weakness and fatigue. Also reports nasal congestion chest congestion which he says is improving. Taking cough and cold medicines for symptoms. Related Data Allergies Allergy/AdvReac Type Severity Reaction Status Date / Time No Known Allergies Allergy Verified 11/01/24 16:59 Review of Systems Review of Systems: CONSTITUTIONAL: Denies body aches, fever, chills ENT: reports rhinorrhea, congestion CARDIOVASCULAR: Denies chest pain, palpitations, or edema. RESPIRATORY: reports cough denies dyspnea. GASTROINTESTINAL: Endorses abdominal pain, nausea,. Denies vomiting, diarrhea, hematochezia, melena, hematemesis GENITOURINARY: Denies dysuria, hematuria, or CVA tenderness. SKIN: Denies rash, itching, or wounds. MUSCULOSKELETAL: Denies back pain, joint pain, or myalgia. NEUROLOGIC: Denies headache, numbness, tingling, or weakness. All systems reviewed & are unremarkable except as noted in HPI and below PMFSH Past Medical History Medical History Anxiety and depression Back pain Surgical History Surgical History H/O hand surgery metal removed from left index finger Social History Social History Smoking packs per day: 0.5 Smoking cigarettes per day: 10.0 Years smoked: 10 Smoking pack-years: 5.00 Smoking status: Current every day smoker Alcohol intake: current Alcohol use details: social Substance use type: marijuana Living arrangements: with family Gender identity (if verbalized by the patient): Male Comments At time of signature, I have reviewed and agree with nursing past medical, surgical, social and family history unless otherwise noted. Please see nursing chart for further information. There is no relevant family history pertinent to the presenting complaint Exam Narrative: GENERAL: Well-appearing, and in no acute distress. EYES: EOMI. Conjunctivae normal. ENT: Mucous membranes pink and moist. nasal congestion CHEST: No respiratory distress. Clear to auscultation. 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 HEART: Regular rate and rhythm. No murmur appreciated. Normal peripheral pulses. ABDOMEN: abd soft, nondistended, normal active bowel sounds. mildly Tender abdomen RLQ: No guarding, rebound tenderness, asymmetry EXTREMITIES: Normal range of motion. No edema. SKIN: Warm, dry, no rash. Capillary refill normal. Normal skin turgor. NEURO: No focal deficits. Alert and oriented x3. PSYCH: Normal affect. Course Course Emergency Course: Patient is aware of diagnosis, understands and agrees to treatment plan. Anticipatory guidance given. Patient agrees to follow-up as directed and is aware of reasons to seek care at the emergency department. Portions of this record may have been created with voice recognition software Level of Care: Express Care Visit Vital Signs Vital signs: Vital Signs Temperature 98.7 F 11/01/24 17:01 Pulse Rate 84 11/01/24 17:01 Respiratory Rate 18 11/01/24 17:01 Blood Pressure 135/79 11/01/24 17:01 Pulse Oximetry 99 11/01/24 17:01 Oxygen Delivery Room Air 11/01/24 17:01 Temperature 98.7 F 11/01/24 17:01 Pulse Rate 84 11/01/24 17:01 Respiratory Rate 18 11/01/24 17:01 Blood Pressure 135/79 11/01/24 17:01 Pulse Oximetry 99 11/01/24 17:01 Oxygen Delivery Room Air 11/01/24 17:01 MDM - URI/Sore Throat MDM Narrative Medical decision making narrative: Discussed physical exam findings. Offered ER transfer for IV fluids labs etc. declines at this time, pt will monitor. Advised supportive measures and signs/symptoms to go to the ER. Reviewed Rx's. Pt is appropriate for outpt treatment and f/u. No evidence of pancreatitis, AAA, cholecystitis, choledocholithiasis, cholangitis, mesenteric ischemia, small bowel obstruction, diverticulitis, colitis, appendicitis, or pelvic etiology such as testicular torsion. Patient has no history of peptic ulcer, H. pylori, chronic aspirin NSAID or corticosteroid use, chronic alcohol use, no history of inflammatory bowel disease, no history of active abdominal infection or malignancy. Patient has no history of hernia or intra-abdominal surgeries, patient denies absence of flatus, constipation, melena, hematemesis. Patient denies post-prandial pain. No pain-out of proportion. Differential Diagnosis Differential diagnosis: Likely upper respiratory infection, sinusitis, viral infection, bronchitis and other (appendicitis, peritonitis, AAA, crohn's, diverticulitis, hernia, ischemic colitis, mesenteric ischemia, testicular torsion ) Discharge Plan Discharge Clinical Impression: Viral infection Patient Disposition: Home, Self-Care Condition: Stable Instructions: Viral Syndrome (ED) Additional Instructions: You were advised to transfer to the ER and you decline at this time. You were made aware of the risk of refusal including worsening of your condition and . Report to the ER immediately by calling 911 for any worsening symptoms. Recommend Flonase spray and Zyrtec (or Claritin/Ev) over the counter Cough syrup may cause drowsiness; avoid driving or take it at night time. Tylenol 1000mg every 8 hours as needed for pain Symptomatic treatment includes: rest, fluids, and increase humidity of the air at home. Stay hydrated. Take small sips of fluid containing electrolytes frequently. Clear liquids (broth, jello, tea, sprite, pedialyte) [place] foods (bananas, rice, applesauce, toast, crackers) Avoid fatty, greasy, fried or spicy foods. Limit dairy until symptoms are improved. You should go to the hospital if you experience persistent nausea and vomiting that does not resolve and does not allow you to tolerate any food or fluids, fevers, increasing abdominal pain, persistent diarrhea, dizziness, fainting, or for any other concerns. Follow up with primary care provider in 3 days. Patient Language: Prydeinig Prescriptions: New prednisone 50 mg tablet 50 mg PO DAILY Qty: 5 0RF ondansetron 4 mg tablet,disintegrating 4 mg PO Q8H PRN (Reason: nausea and vomiting) Qty: 20 0RF Follow-up/Referrals: Radha,KATERINA Hart [Primary Care Provider] - Time of Disposition: 17:31
== END 2024-11-01 17:36 | disposition home or self-care (01) ==
PROVIDERS: Emergency Provider Nurse Practitioner Family; PCP Physician Assistant
DX: B34.9 Viral infection, unspecified (principal); F17.210 Nicotine dependence, cigarettes, uncomplicated; F12.90 Cannabis use, unspecified, uncomplicated
CPT/HCPCS: 99213; G0463